=== PATIENT | female | born 1970 | race Asian ===

== ENCOUNTER 2020-07-31 22:49 | Emergency (ER) | payer SELFPAY ==
[~2020-07-31] VITALS: Ht 147.3 cm; Wt 62.6 kg
[2020-08-01] MEDS ORDERED: ONDANSETRON HCL INJ 2MG/ML 2ML 2 MG/ML VIAL IV STA (00:26)
[2020-08-01] MEDS ORDERED: KETOROLAC TROMETHAMINE 30 MG/ML VIAL IV STA (00:26)
[2020-08-01] MEDS ORDERED: ACETAMIN/BUTALBITAL/CAFFEINE TAB PO ONE (00:30)
[2020-08-01] MEDS ORDERED: SODIUM CHLORIDE 0.9% 1000ML 1,000 ML IV ONE (00:30)
== END 2020-08-01 02:00 | disposition home or self-care (01) ==
LOC: ER 23:06
DX: G43.909 Migraine, unspecified, not intractable, without status migrainosus (principal)
CPT/HCPCS: 99283; J1885; J2405; J7030

== ENCOUNTER 2020-10-24 02:34 | Emergency (ER) | payer SELFPAY ==
[~2020-10-24] VITALS: Ht 147.3 cm; Wt 62.6 kg
[2020-10-24] MEDS ORDERED: DICYCLOMINE HCL 20 MG/2 ML VIAL IM ONE (02:45)
[2020-10-24 02:51] LABS: BASOPHILS # (AUTO) 0.1 (0.0-0.1); BASOPHILS % 0.8 % (0.0-1.0); EOSINOPHILS # (AUTO) 0.3 (0.0-0.4); EOSINOPHILS % 4.2 % (0.0-6.0); HEMATOCRIT 41.3 % (34.2-44.1); HEMOGLOBIN 13.8 g/dL (12.0-16.0); LYMPHOCYTES % 55.8 % (18.0-39.1); MEAN CORPUSCULAR HEMOGLOBIN 31.4 pg (28-32); MEAN CORPUSCULAR HGB CONC 33.4 g/dL (31-35); MEAN CORPUSCULAR VOLUME 93.9 fL (81-99); MONOCYTES # (AUTO) 0.6 (0.2-0.8); MONOCYTES % 8.5 % (4.4-11.3); NEUTROPHILS # (AUTO) 2.2 (2.1-6.9); NEUTROPHILS % 30.6 % (38.7-80.0); PLATELET COUNT 305 x10e3/uL (140-360); RED CELL DISTRIBUTION WIDTH 11.8 % (11.7-14.4)
[2020-10-24 03:10] LABS: AMYLASE 56 U/L (25-125); LIPASE 59 U/L (8-78)
[2020-10-24 03:14] LABS: ALANINE AMINOTRANSFERASE 51 IU/L (0-55); ALBUMIN 3.9 g/dL (3.5-5.0); ALBUMIN/GLOBULIN RATIO 1.1 (0.8-2.0); ALKALINE PHOSPHATASE 56 IU/L (40-150); ANION GAP 15.7 mmol/L (8-16); BLOOD UREA NITROGEN 11 mg/dL (7-26); BUN/CREATININE RATIO 15 (6-25); CARBON DIOXIDE 22 mmol/L (22-29); CHLORIDE 103 mmol/L (98-107); CREATINE KINASE 84 IU/L (29-168); CREATININE, SERUM 0.72 mg/dL (0.57-1.11); EST GLOMERULAR FILTRATION RATE 86 ML/MIN (60-); GLUCOSE 116 mg/dL (74-118); POTASSIUM 3.7 mmol/L (3.5-5.1); SODIUM 137 mmol/L (136-145)
[2020-10-24 03:15] LABS: CLARITY,URINE CLEAR (CLEAR); COLOR,URINE YELLOW (YELLOW); KETONES,URINE NEGATIVE (NEGATIVE); LEUKOCYTE ESTERASE ,URINE NEGATIVE (NEGATIVE); NITRITE,URINE NEGATIVE (NEGATIVE); PROTEIN,URINE DIPSTICK NEGATIVE (NEGATIVE); URINE UROBILINOGEN 0.2 mg/dL (0.2 - 1)
[2020-10-24 03:20] LABS: BACTERIA,URINE RARE /HPF; EPITHELIAL CELLS,URINE MODERATE /LPF; WBC,URINE (MAN) 0-5 /HPF (0-5)
[2020-10-24 04:29] VITALS: BP 123/77
== END 2020-10-24 04:38 | disposition home or self-care (01) ==
LOC: ER 02:39
DX: R07.89 Other chest pain (principal); R10.11 Right upper quadrant pain; K80.80 Other cholelithiasis without obstruction; R94.31 Abnormal electrocardiogram [ECG] [EKG]
CPT/HCPCS: 36415; 71045; 76705; 80053; 81001; 82150; 82550; 82553; 83690; 84484; 84702; 85025; 93005; 99284; C9113; J0500

== ENCOUNTER 2021-08-11 06:27 | Emergency (ER) | payer SELFPAY ==
[~2021-08-11] VITALS: Ht 147.3 cm; Wt 61.2 kg
[2021-08-11] MEDS ORDERED: CEPHALEXIN500 MG PO (06:38)
[2021-08-11] MEDS ORDERED: ONDANSETRON ODT4 MG PO (06:45)
[2021-08-11] MEDS ORDERED: MELOXICAM7.5 MG PO (06:45)
[2021-08-11 07:40] LABS: BACTERIA,URINE MANY /HPF; EPITHELIAL CELLS,URINE FEW /LPF; RBC,URINE >50 /HPF (0-5); RENAL EPITHELIAL CELLS,URINE FEW; WBC,URINE (MAN) 0-5 /HPF (0-5)
[2021-08-11 07:41] LABS: CLARITY,URINE CLOUDY (CLEAR); COLOR,URINE RED (YELLOW)
[2021-08-11 07:42] LABS: KETONES,URINE TRACE (NEGATIVE); LEUKOCYTE ESTERASE ,URINE NEGATIVE (NEGATIVE); NITRITE,URINE NEGATIVE (NEGATIVE); PROTEIN,URINE DIPSTICK >=300 (NEGATIVE); URINE UROBILINOGEN 0.2 mg/dL (0.2 - 1)
[2021-08-11] MEDS ORDERED: BACTRIM DS TAB1 EACH PO (15:24)
== END 2021-08-11 07:45 | disposition home or self-care (01) ==
LOC: ER 07:03
DX: R30.0 Dysuria (principal); N39.0 Urinary tract infection, site not specified; R31.9 Hematuria, unspecified
CPT/HCPCS: 81001; 81025; 87086; 99283